=== PATIENT | female | born 1995 | race African-American/Black ===

== ENCOUNTER 2018-02-01 23:08 | Emergency (ER) | payer OTHER, BC ==
[~2018-02-01] VITALS: Ht 154.9 cm; Wt 72.1 kg
[~2018-02-01 23:08] MED LIST: COMPAZINE5 M1 PO; NITROFURANTOIN100 MG PO; ONDANSETRON HCL4 M2 PO
[2018-02-01] MEDS ORDERED: ANUSOL-HC25 MG RECTAL (23:29)
[2018-02-01 23:56] VITALS: BP 140/97
== END 2018-02-01 23:56 | disposition home or self-care (01) ==
LOC: ER 23:08
DX: K64.9 Unspecified hemorrhoids (principal); J45.909 Unspecified asthma, uncomplicated; Z90.89 Acquired absence of other organs